=== PATIENT | female | born 1965 | race Caucasian/White ===

== ENCOUNTER 2020-01-21 09:38 | Day surgery (SDC) | payer MEDICAID ==
[~2020-01-21] VITALS: Ht 170.2 cm; Wt 68.2 kg
[~2020-01-21 09:38] MED LIST: ALBU8HFA PO; DOCU100C40 PO; FERR-86 PO; MONT10TA21 PO; PANT40TA39 PO; POLY17PO10 PO; SERT50TA PO
[2020-01-21 09:46] VITALS: BP 116/71
[2020-01-21] MEDS ORDERED: fentaNYL/PF 50MCG/1 ML 2ML syringe ONE (10:12)
[2020-01-21] MEDS ORDERED: MIDAZolam 5mg/5ml vial ONE (10:13)
[2020-01-21] MEDS ORDERED: LIDOcaine Viscous 15ml cup ONE (10:13)
[2020-01-21] MEDS ORDERED: CLON-527 PO (10:50)
[2020-01-21] MEDS ORDERED: MULT-1085 PO (10:51)
[2020-01-21] MEDS ORDERED: CLON-529 PO (10:51)
[2020-01-21 12:27] VITALS: BP 119/67
[2020-01-21 12:37] VITALS: BP 118/74
[2020-01-21 12:47] VITALS: BP 115/70
[2020-01-21 12:57] VITALS: BP 117/73
== END 2020-01-21 13:05 | disposition home or self-care (01) ==
LOC: GI LAB 09:38
PROVIDERS: ATTEND Internal Medicine Gastroenterology
DX: Z12.11 Encounter for screening for malignant neoplasm of colon (principal); R12 Heartburn; K64.8 Other hemorrhoids; K63.89 Other specified diseases of intestine; K21.9 Gastro-esophageal reflux disease without esophagitis; K62.1 Rectal polyp; Z98.84 Bariatric surgery status; Z86.010 Personal history of colon polyps
CPT/HCPCS: 43235; 45385; 99152; 99153; C1773; J2250; J3010; J7040; A4620

== ENCOUNTER 2020-02-10 05:16 | Day surgery (SDC) | payer MEDICAID ==
[2020-02-04 17:05] LABS: BASOPHILS # (AUTO) 0.1 X10'3 (0-0.2); BASOPHILS % (AUTO) 0.8 % (0-1); EOSINOPHILS # (AUTO) 0.6 X10'3 (0-0.9); LYMPHOCYTES # (AUTO) 1.7 X10'3 (1.1-4.8); LYMPHOCYTES % (AUTO) 24.5 % (21-51); MEAN CORPUSCULAR HEMOGLOBIN 28.2 PG (27.0-31.0); MEAN CORPUSCULAR HGB CONC 33.1 g/dL (33.0-36.5); MEAN CORPUSCULAR VOLUME 85.1 FL (78-98); MEAN PLATELET VOLUME 9.4 FL (7.4-10.4); MONOCYTES # (AUTO) 0.5 X10'3 (0-0.9); MONOCYTES % (AUTO) 6.7 % (2-12); NEUTROPHILS # (AUTO) 4.2 X10'3 (1.8-7.7); PRE OP HEMATOCRIT 33.4 % (35.0-45.0); PRE OP HEMOGLOBIN 11.1 g/dL (12.0-16.0); PRE OP PLATELET COUNT 211 X10'3 (140-440); RED BLOOD COUNT 3.92 X10'6 (4.20-5.60); RED CELL DISTRIBUTION WIDTH 15.4 % (11.5-14.5)
[2020-02-04 17:18] LABS: ALBUMIN 3.7 G/DL (3.4-5.0); ALBUMIN/GLOBULIN RATIO 1.1 (1.1-1.5); ALKALINE PHOSPHATASE 123 IU/L (46-116); BLOOD UREA NITROGEN 15 MG/DL (7-18); BUN/CREATININE RATIO 16.5 (6.6-38.0); CALCIUM 8.3 MG/DL (8.5-10.1); CHLORIDE 106 MMOL/L (99-107); CREATININE 0.91 MG/DL (0.40-0.90); PRE OP ALT 18 U/L (30-65); PRE OP ANION GAP 7 (8-16); PRE OP AST 17 U/L (10-37); PRE OP BILIRUB, TOTAL 0.4 MG/DL (0.0-1.0); PRE OP GLUCOSE 90 MG/DL (70-104); PRE OP POTASSIUM 3.8 MMOL/L (3.4-5.1); PRE OP SODIUM 141 MMOL/L (135-145); TOTAL CARBON DIOXIDE 27.9 MMOL/L (24-32); eGFR 65 ML/MIN
[~2020-02-10] VITALS: Ht 170.2 cm; Wt 70.3 kg
[2020-02-10] VITALS (8 sets, daily range): BP systolic 138–150; BP diastolic 71–88
[~2020-02-10 05:16] MED LIST changes: +CLON-527 PO; +CLON-529 PO; -DOCU100C40 PO; -FERR-86 PO; +HYDR-4353 PO; -POLY17PO10 PO; +ringers solution, lacted 1,000 ML IV SCH
[2020-02-10] MEDS ORDERED: famotidine 20mg tablet PO ONE (05:30)
[2020-02-10] MEDS ORDERED: ceFAZolin 2gm in dextrose, iso 50 ML IV ONE (05:30)
[2020-02-10] MEDS ORDERED: albuterol 2.5 MG/3 ML nebule NEB ONE (05:30)
[2020-02-10] MEDS ORDERED: BUPIVAcaine/PF 2.5mg/ml (0.25%) 10ml vial ONE (06:40)
[2020-02-10] MEDS ORDERED: LIDOcaine 0.5% (5mg/ml) 50ml vial ONE (08:30)
[2020-02-10] MEDS ORDERED: fentaNYL/PF 50MCG/1 ML 2ML syringe ONE (09:33)
[2020-02-10] MEDS ORDERED: midazolam 2 mg/2 ml injection ONE (09:34)
[2020-02-10] MEDS ORDERED: propofol inj 20 ML IV ONE (09:56)
[2020-02-10] MEDS ORDERED: proCHLORperazine 10 MG/2 ml inj IV PRN (10:00)
[2020-02-10] MEDS ORDERED: morphine 2 MG/ML inj. syringe IV PRN (10:00)
[2020-02-10] MEDS ORDERED: meperidine/PF 25mg/ml syringe IV PRN (10:00)
[2020-02-10] MEDS ORDERED: ringers solution, lacted 1,000 ML IV SCH (10:00)
[2020-02-10] MEDS ORDERED: morphine 4 MG/ML inj SYRINge IV PRN (10:00)
[2020-02-10] MEDS ORDERED: ondansetron/PF 4mg/2ml inj IV PRN (10:00)
[2020-02-10] MEDS ORDERED: acetaminophen 1,000mg/100ml IV 100 ML IV PRN (10:00)
[2020-02-10] MEDS ORDERED: HYDROmorphone inj. 0.5 MG/0.5 ML DISP.SYRIN IV PRN ×2 (10:00)
--- NOTE | 2020-02-10 10:01 | NUR ---
RECEIVED FROM OR VIA [facility] ACCOMPANIED BY ANESTHESIOLOGIST DR LONG. REPORT GIVEN. PT AWAKE AND ALERT AND DENIES PAIN AT THIS TIME. DRESSINGS R FINGERS CDI, GOOD PERIPHERAL PULSES, GOOD CAP REFILL, SKIN PINK AND WARM. 20 GAUGE PIV L FA PATENT AND RUNNING LR AT 100 ML/HR. RUE ELEVATED AND ICE APPLIED, RESTING COMFORTABLY.
--- NOTE | 2020-02-10 10:51 | NUR ---
PT AWAKE AND ALERT AND DENIES PAIN AT THIS TIME. DRESSINGS R FINGERS CDI, GOOD PERIPHERAL PULSES, GOOD CAP REFILL, SKIN PINK AND WARM. 20 GAUGE PIV L FA DC/D CATH TIP INTACT. TOLERATING FLUIDS, ABLE TO AMBULATE, DRESS SELF AND VOID. DISCHARGE INSTRUCTIONS GIVEN AND PT VERBALIZED UNDERSTANDING. TRANSPORTED VIA WHEELCHAIR TO [facility] OTHER IN PRIVATE VEHICLE TO HOME.
== END 2020-02-10 10:51 | disposition home or self-care (01) ==
LOC: PAS 05:16
PROVIDERS: ATTEND Orthopaedic Surgery Hand Surgery
DX: M67.441 Ganglion, right hand (principal); M19.041 Primary osteoarthritis, right hand; F32.9 Major depressive disorder, single episode, unspecified; G43.909 Migraine, unspecified, not intractable, without status migrainosus; M18.0 Bilateral primary osteoarthritis of first carpometacarpal joints; F12.90 Cannabis use, unspecified, uncomplicated; M19.042 Primary osteoarthritis, left hand; J45.909 Unspecified asthma, uncomplicated; F41.9 Anxiety disorder, unspecified; D64.9 Anemia, unspecified; Z98.84 Bariatric surgery status; Z72.89 Other problems related to lifestyle; Z98.890 Other specified postprocedural states; Z79.899 Other long term (current) drug therapy; Z11.59 Encounter for screening for other viral diseases
CPT/HCPCS: 26160; 36415; 80053; 82948; 85025; 93005; A6222; J2001; J2250; J2704; J3010; J3490; U0003; A4215; A4618; J7120

== ENCOUNTER 2020-03-18 15:16 | Outpatient (CLI) | payer MEDICAID ==
[~2020-03-18] VITALS: Ht 170.2 cm; Wt 68.0 kg
[~2020-03-18 15:16] MED LIST changes: -ringers solution, lacted 1,000 ML IV SCH
[2020-03-18] MEDS ORDERED: albuterol 2.5 MG/3 ML nebule NEB ONE (15:55)
== END 2020-03-18 23:59 | disposition home or self-care (01) ==
LOC: RT 15:16
PROVIDERS: ATTEND Family Medicine
DX: J45.40 Moderate persistent asthma, uncomplicated (principal); J98.4 Other disorders of lung
CPT/HCPCS: 94060; 94760